=== PATIENT | male | born 1980 | race Caucasian/White ===

== ENCOUNTER → 2018-09-26 | Outpatient (CLI) | payer SELFPAY ==
[2018-09-26 16:36] LABS: ARTERIAL BLD GAS O2 SATURATION 96.3 % (92-100); ARTERIAL BLOOD GAS BASE EXCESS 0.6 (-2-2); ARTERIAL BLOOD GAS HCO3 23.9 meq/L (22-26); ARTERIAL BLOOD GAS PCO2 34.8 mmHg (35-45); ARTERIAL BLOOD GAS PO2 85.9 mmHg (80-100); ARTERIAL BLOOD GAS pH 7.46 (7.35-7.45)
[2018-09-26 17:10] LABS: HEMATOCRIT 44.3 % (42.0-52.0); HEMOGLOBIN 15.1 g/dl (13.5-18.0); MEAN CELL VOLUME 91 fl (80.0-100.0); MEAN CORPUSCULAR HEMOGLOBIN 31 pg (27.0-31.0); MEAN CORPUSCULAR HGB CONC 34 g/dl (33.0-37.0); PLATELET COUNT 230 K/mm3 (130-400); RED BLOOD COUNT 4.88 M/mm3 (4.20-5.60); REDCELL DISTRIBUTION WIDTH-CV 12.3 % (11.5-14.5)
[2018-09-26 17:22] LABS: CALCIUM 9.2 mg/dL (8.4-10.2); CREATININE, serum 1.09 (0.66-1.25); POTASSIUM 4.2 mmol/L (3.4-5.0)
[2018-09-26 17:34] LABS: TROPONIN-I 0.012 ng/mL (0.000-0.035)
== END ==
LOC: COL.CAR 15:59
PROVIDERS: Internal Medicine Interventional Cardiology
DX: I20.8 Other forms of angina pectoris (principal)